=== PATIENT | male | born 1980 | race Caucasian/White ===

== ENCOUNTER 2023-11-08 20:15 | Emergency (ER) | payer MEDICAID, OTHER ==
[~2023-11-08] VITALS: Ht 177.8 cm; Wt 106.8 kg
[~2023-11-08 20:15] MED LIST: DIAZ5TAB22 PO; IBUP-1051 PO
[2023-11-08 21:08] LABS: BASOPHILS # (AUTO) 0.1 X10'3 (0-0.2); BASOPHILS % (AUTO) 1.1 % (0-1); EOSINOPHILS # (AUTO) 0.3 X10'3 (0-0.9); EOSINOPHILS % (AUTO) 3.4 % (0-6); HEMATOCRIT 46.6 % (42.0-52.0); HEMOGLOBIN 15.9 g/dl (14.0-17.9); LYMPHOCYTES # (AUTO) 2.9 X10'3 (1.1-4.8); LYMPHOCYTES % (AUTO) 35.5 % (21-51); MEAN CORPUSCULAR HEMOGLOBIN 32.3 PG (27.0-31.0); MEAN CORPUSCULAR HGB CONC 34.2 g/dL (33.0-36.5); MEAN CORPUSCULAR VOLUME 94.5 FL (78-98); MONOCYTES # (AUTO) 0.5 X10'3 (0-0.9); NEUTROPHILS # (AUTO) 4.4 X10'3 (1.8-7.7); PLATELET COUNT 196 X10'3 (140-440); RED BLOOD COUNT 4.93 X10'6 (4.70-6.10); RED CELL DISTRIBUTION WIDTH 13.2 % (11.5-14.5); WHITE BLOOD COUNT 8.1 X10'3 (4.5-11.0)
[2023-11-08 21:30] LABS: ALANINE AMINOTRANSFERASE 45 U/L (12-78); ALBUMIN 4.2 G/DL (3.4-5.0); ALBUMIN/GLOBULIN RATIO 1.3 (1.1-1.5); ALKALINE PHOSPHATASE 77 IU/L (46-116); ANION GAP 14 (8-16); ASPARTATE AMINO TRANSFERASE 20 U/L (10-37); BILIRUBIN,TOTAL 0.4 MG/DL (0.1-1.0); BLOOD UREA NITROGEN 13 MG/DL (7-18); BUN/CREATININE RATIO 15.9 (10.0-20.0); CALCIUM 8.2 MG/DL (8.5-10.1); CHLORIDE 109 MMOL/L (99-107); CREATININE 0.82 MG/DL (0.60-1.10); GLUCOSE 110 MG/DL (70-104); LIPASE 31 U/L (16-77); POTASSIUM 3.5 MMOL/L (3.5-5.1); SODIUM 146 MMOL/L (135-145); TOTAL CARBON DIOXIDE 22.9 MMOL/L (24-32); TOTAL PROTEIN 7.5 G/DL (6.4-8.2); eCRCL 120 ML/MIN; eGFR > 90 ML/MIN
[2023-11-08 21:32] LABS: BILIRUBIN,URINE NEGATIVE (Neg); CLARITY,URINE SLIGHTLY CLOUDY (Clear); COLOR,URINE YELLOW (Yellow); GLUCOSE, URINE NEGATIVE (Neg); KETONES,URINE NEGATIVE (Neg); LEUKOCYTE ESTERASE ,URINE NEGATIVE (Neg); NITRITES, URINE NEGATIVE (Neg); OCCULT BLOOD,URINE TRACE-INTACT (Neg); PROTEIN,URINE NEGATIVE (Neg)
[2023-11-08 21:35] LABS: UA COLLECTION TYPE NON-SPECIFIED
[2023-11-08 21:42] LABS: COARSE GRANULAR CAST 0-3 /LPF (NEGATIVE)
[2023-11-08 21:43] LABS: AMORPHOUS URATES 2+
[2023-11-08 21:44] LABS: BACTERIA,URINE NONE SEEN /HPF (Neg); MUCUS STRANDS MANY /LPF (Neg); RBC,URINE 0-2 /HPF (0-2); SQUAMOUS EPITHELIAL CELL,UR FEW /LPF (FEW); WBC,URINE NONE SEEN /HPF (0-4)
[2023-11-09] MEDS: dicyclomine 10 MG capsule PO ONE (05:07)
[2023-11-09 05:08] VITALS: BP 130/68; PULSE 72; RESP 18; TEMP 98.6; O2SAT 98
== END 2023-11-09 05:12 | disposition home or self-care (01) ==
LOC: ER 20:16
DX: K59.00 Constipation, unspecified (principal); R10.31 Right lower quadrant pain; Z88.0 Allergy status to penicillin; Z79.899 Other long term (current) drug therapy; Z79.1 Long term (current) use of non-steroidal anti-inflammatories (NSAID)
CPT/HCPCS: 36415; 74018; 74176; 80053; 81001; 83690; 85025; 99284

== ENCOUNTER 2025-07-16 10:42 | Emergency (ER) | payer OTHER ==
[~2025-07-16] VITALS: Ht 177.8 cm; Wt 113.4 kg
[2025-07-16 10:49] VITALS: TEMP 97
[2025-07-16 11:08] LABS: LEUKOCYTE ESTERASE ,URINE NEGATIVE (Neg); NITRITES, URINE NEGATIVE (Neg); OCCULT BLOOD,URINE SMALL (Neg)
[2025-07-16 11:09] LABS: UA COLLECTION TYPE CLN CATCH MIDSTREAM
--- NOTE | 2025-07-16 11:10 | Physician Documentation ---
History of Present Illness ~ Chief Complaint: Flank Pain Stated Complaint: FLANK PAIN Time Seen by MD: 10:58 OK to notify your PCP?: Yes Primary Medical Doctor: Ronan Source: patient Mode of Arrival: POV Exam Limitations: no limitations HPI 45-year-old male with chief complaint right flank pain that started about a week ago. Pain is constant no relationship to activity or how he moves. No aggravating or alleviating factors. He states that the pain reminds him of when he has had a kidney stone in the past. His last kidney stone he states was the size of a grain of sand and he states that he passed it on his own and did not require any follow up care. He denies nausea, vomiting, fever, chills, changes in bowel habits, blood in urine. Medication Reconciliation Allergies: Coded Allergies: Penicillins (Unverified Allergy, Unknown, 07/16/25) Scheduled Diazepam* (Valium*), 5 MG PO BID Ibuprofen* (Motrin*), 800 MG PO TID Past Medical History Past Medical History: Seizures, Kidney Stones, Anxiety Past Surgical History: no surgical history Alcohol Use: None Drug Use: none Lives with: Family Lives In: Home Occupation: unemployed Review of Systems All Other Systems at this time: Reviewed and Negative Physical Exam Vital Signs: Temperature: 97.0, Source: Temporal, Heart Rate: 66, Respiratory Rate: 15, BP: 150/85, Pulse Oximetry: 100, Weight: 113.400 Oxygen Flow Rate: 0 Physical Exam GENERAL: Alert, no acute distress. HEENT: NCAT, EOMI, PERRL, normal oropharynx, moist oral mucosa. NECK: Supple, trachea midline. CARDIAC: Regular rate and rhythm, no murmurs, rubs, or gallops. Equal distal pulses. No lower extremity edema, cap refill less than 2 seconds. RESPIRATORY: Equal breath sounds, clear to auscultation bilaterally, no respiratory distress. GASTROINTESTINAL: Non distended, soft, nontender, No guarding or rebound. Back: Right sided lower back ttp, over the right flank area, lower than CVA ttp. no midline ttp MUSCULOSKELETAL: Normal range of motion, nontender, no swelling. Normal gait. NEUROLOGICAL: Awake, alert, and oriented x 3. SKIN: Warm/dry, no pallor, no rash. PSYCH: Alert and appropriate. Affect congruent with mood. Speech is clear. Good eye contact. Progress Results/Orders Results/Orders Orders - DEION HODGSON Ct Abdomen Pelvis (07/16/25 12:06) Completed Orders - DEION HODGSON Normal Saline 1000ml (0.9% Sodium Chlori (07/16/25 11:05) Ct Abdomen Pelvis (07/16/25 12:06) Ketorolac Trometh 15mg/Ml Vial (Toradol (07/16/25 11:05) Iohexol 300mg/Ml 100ml Inj. (Omnipaque-3 (07/16/25 11:13) Medications Received in ER Medications (Trade) Dose Ordered Sig/Gorge Route PRN Reason Start Time Stop Time Status Last Admin Dose Admin (0.9% sodium chloride (NS) 1000ml IV soln) 1,000 ml ONCE ONCE IVB 07/16/25 11:05 07/16/25 11:08 DC 07/16/25 11:34 1,000 ML (Toradol injection) 15 mg ONCE ONCE IV 07/16/25 11:05 07/16/25 11:08 DC 07/16/25 11:34 15 MG Vital Signs 07/16/25 07/16/25 07/16/25 07/16/25 10:49 11:17 11:34 11:42 Temp 97.0 Pulse 66 69 Resp 15 18 18 18 B/P (MAP) 150/85 156/96 (116) Pulse Ox 100 98 O2 Flow Rate 0 0 07/16/25 12:19 Resp 20 Laboratory Tests Test 07/16/25 10:53 07/16/25 11:11 Urine Specimen Description Cln catch midstream Urine Color Yellow Urine Clarity Clear Urine pH 6.5 Urine Specific [place] 1.010 Urine Protein Negative Urine Glucose (UA) Negative Urine Ketones Negative Urine Occult Blood Small Urine Nitrite Negative Urine Bilirubin Negative Urine Urobilinogen 0.2 Urine Leukocyte Esterase Negative Urine RBC 0-2 Urine WBC None seen Urine Squamous Epithelial Cells None seen Urine Bacteria None seen Urine Mucus None seen Urine Culture Indicated Not ind Volume Urine Centrifuged 10 ml Urine Comment White Blood Count 5.9 Red Blood Count 4.72 Hemoglobin 15.4 Hematocrit 44.7 Mean Corpuscular Volume 94.7 Mean Corpuscular Hemoglobin 32.7 H Mean Corpuscular Hemoglobin Concent 34.5 Red Cell Distribution Width 13.9 Platelet Count 170 Mean Platelet Volume 8.8 Neutrophils (%) (Auto) 57.9 Lymphocytes (%) (Auto) 32.6 Monocytes (%) (Auto) 5.6 Eosinophils (%) (Auto) 3.8 Basophils (%) (Auto) 0.1 Neutrophils # (Auto) 3.4 Lymphocytes # (Auto) 1.9 Monocytes # (Auto) 0.3 Eosinophils # (Auto) 0.2 Basophils # (Auto) 0.0 CBC Comment Sodium Level 142 Potassium Level 4.1 Chloride Level 108 H Carbon Dioxide Level 27.9 Anion Gap 6 L Blood Urea Nitrogen 12 Creatinine 0.66 Estimated GFR/1.73 m2 > 90 BUN/Creatinine Ratio 18.2 Glucose Level 110 H Calcium Level 8.7 Total Bilirubin 0.4 Aspartate Amino Transf (AST/SGOT) 19 Alanine Aminotransferase (ALT/SGPT) 39 Alkaline Phosphatase 82 Total Protein 7.5 Albumin 4.1 Globulin 3.4 Albumin/Globulin Ratio 1.2 Lipase 26 Chemistry Comments Medical Decision Making Additional information obtaine: N/A Findings n/a Diff Dx GI Bleed:Consideration: Unlikely: Other Diff Dx Pain:Considerations: Include: AAA, Angina/AZ, Aortic dissection, Appendicitis, Bowel obstruction, Cholangitis, Cholecystitis, Cholelithasis, Constipation, Diverticular disease, Esophageal rupture, Esophagitis, Gastritis, Gastroenteritis, GI hemorrhage, Hepatitis, Hernia, Inflammatory BD, Ischemic bowel, Mass, Pancreatitis, Porphyria, PUD, Testicular torsion, Trauma, in traabdominal, Urinary obstruction, Urinary tract infection, Urolithiasis, Other Diff Dx N/V/D:Considerations: Unlikely: Other Diff Dx Rectal:Considerations: Unlikely: Other Additional Comments Right flank pain consistent with musculoskeletal as CT scan was negative for obstructing stone. Hematuria noted on urinalysis collected here likely from the nonobstructing left kidney stone Departure Time of Disposition: 12:25 Disposition: 01 HOME / SELF CARE / HOMELESS Impression: Primary Impression: Acute back pain Qualified Codes: M54.50 - Low back pain, unspecified Additional Impressions: Microscopic hematuria kidney stone left nonobstructing Condition: Stable Discharge Instructions: Acute Back Pain, Adult Additional Instructions: Your labs and urine were unremarkable other than seeing microscopic blood in your urine which is likely due to the stone that has in your left kidney. The stone in your left kidney is not the cause of your symptoms considering your symptoms around the right side and also because the stone is in the kidney not in the ureter and when stones or in the kidney they do not cause pain. Your pain is likely due to your back. I copied the results of your CT scan below for you to review. Exam: CT CT ABDOMEN PELVIS W/ IV CONTRAST History: right flank pain Comparison Study: CT CT ABDOMEN PELVIS on DOS: 11/09/23 Technique: Multidetector spiral CT of the abdomen was performed from lung bases to pubic symphysis. Axial imaging was performed with intravenous contrast fol lowing the uneventful administration of 100 ml Omnipaque 300. Coronal and sagittal multiplanar reformats were obtained from the axial data set by the technologist. Radiation Dose : 1. Abdomen/Pelvis: CTDIvol 17.9 mGy, DLP 935 mGy*cm. Findings: Lung Bases: Lung bases are clear. Visualized portions of the heart and pericardium are unremarkable. Liver: The liver is normal in size. No focal lesions. Liver is enlarged measuring 21.2 cm. Diffusely hypoattenuating liver parenchyma consistent with hepatic steatosis. Gallbladder and Biliary Tree: The gallbladder is unremarkable. No intrahepatic or extrahepatic biliary ductal dilatation. Spleen: Unremarkable Pancreas: The pancreas enhances normally and there are no focal lesions. The main pancreatic duct is not dilated. Adrenal Glands: Unremarkable Kidneys: Kidneys enhance symmetrically. Punctate nonobstructive left nephrolithiasis GI tract: The stomach is grossly normal in appearance.. No evidence of small bowel wall thickening or abnormal dilatation to suggest bowel obstruction. Colonic diverticulosis without acute diverticulitis. Normal appendix. Peritoneum/mesentery/retroperitoneum. No evidence of free intraperitoneal air. No ascites. No evidence of suspicious lymphadenopathy. Abdominal Wall: Unremarkable. Vasculature: Abdominal aorta and main branches are unremarkable. Normal vascular enhancement. Urinary Bladder: Grossly unremarkable for degree of distention. Pelvic Organs: Unremarkable Musculoskeletal: No aggressive focal bony lesions, acute fractures or dislocation. IMPRESSION: 1. No acute abdominal or pelvic findings. 2. Hepatomegaly and hepatic steatosis. 3. Punctate nonobstructive left nephrolithiasis. Referrals: NO PRIMARY CARE PROVIDER (PCP) Education Educated: Patient Educated regarding: diagnosis, treatment, need for follow up Signature Scribe Signature: X Attestation: DEION BUTTERFIELD Jul 16, 2025 11:10
[2025-07-16] MEDS ORDERED: iohexol 300mg/ml 100ml inj. ONE (11:13)
[2025-07-16 11:14] LABS: MUCUS STRANDS NONE SEEN /LPF (Neg); SQUAMOUS EPITHELIAL CELL,UR NONE SEEN /LPF (FEW)
[2025-07-16 11:19] LABS: MEAN PLATELET VOLUME 8.8 FL (7.4-10.4); RED CELL DISTRIBUTION WIDTH 13.9 % (11.5-14.5)
[2025-07-16] MEDS: normal saline 1000ML IV soln IVB ONE (11:34)
[2025-07-16] MEDS: ketorolac trometh 15mg/ml vial 15 MG/ML ML IV ONE (11:34)
[2025-07-16 11:42] LABS: CREATININE 0.66 MG/DL (0.60-1.10); TOTAL CARBON DIOXIDE 27.9 MMOL/L (24-32); eCRCL 146 ML/MIN; eGFR > 90 ML/MIN
--- NOTE | 2025-07-16 12:10 | RADIOLOGY REPORT ---
Exam: CT CT ABDOMEN PELVIS W/ IV CONTRAST History: right flank pain Comparison Study: CT CT ABDOMEN PELVIS on DOS: 11/09/23 Technique: Multidetector spiral CT of the abdomen was performed from lung bases to pubic symphysis. Axial imaging was performed with intravenous contrast following the uneventful administration of 100 ml Omnipaque 300. Coronal and sagittal multiplanar reformats were obtained from the axial data set by the technologist. Radiation Dose : 1. Abdomen/Pelvis: CTDIvol 17.9 mGy, DLP 935 mGy*cm. Findings: Lung Bases: Lung bases are clear. Visualized portions of the heart and pericardium are unremarkable. Liver: The liver is normal in size. No focal lesions. Liver is enlarged measuring 21.2 cm. Diffusely hypoattenuating liver parenchyma consistent with hepatic steatosis. Gallbladder and Biliary Tree: The gallbladder is unremarkable. No intrahepatic or extrahepatic biliary ductal dilatation. Spleen: Unremarkable Pancreas: The pancreas enhances normally and there are no focal lesions. The main pancreatic duct is not dilated. Adrenal Glands: Unremarkable Kidneys: Kidneys enhance symmetrically. Punctate nonobstructive left nephrolithiasis GI tract: The stomach is grossly normal in appearance.. No evidence of small bowel wall thickening or abnormal dilatation to suggest bowel obstruction. Colonic diverticulosis without acute diverticulitis. Normal appendix. Peritoneum/mesentery/retroperitoneum. No evidence of free intraperitoneal air. No ascites. No evidence of suspicious lymphadenopathy. Abdominal Wall: Unremarkable. Vasculature: Abdominal aorta and main branches are unremarkable. Normal vascular enhancement. Urinary Bladder: Grossly unremarkable for degree of distention. Pelvic Organs: Unremarkable Musculoskeletal: No aggressive focal bony lesions, acute fractures or dislocation. IMPRESSION: 1. No acute abdominal or pelvic findings. 2. Hepatomegaly and hepatic steatosis. 3. Punctate nonobstructive left nephrolithiasis.
[2025-07-16 12:34] VITALS: BP 153/115; PULSE 54; RESP 18; O2SAT 100
== END 2025-07-16 12:36 | disposition home or self-care (01) ==
LOC: ER 10:42
DX: M54.9 Dorsalgia, unspecified (principal); N20.0 Calculus of kidney; F41.9 Anxiety disorder, unspecified; Z88.0 Allergy status to penicillin
CPT/HCPCS: 36415; 74177; 80053; 81001; 83690; 85025; 96361; 96374; 99285; J1885; J7030; Q9967